=== PATIENT | male | born 1950 | race Caucasian/White ===

== ENCOUNTER 2017-03-03 09:19 | Day surgery (SDC) | payer OTHER, MEDICARE ==
[2017-03-02 14:27] VITALS: BMI 30.2
[2017-03-03] MEDS ORDERED: PROPOFOL 20 ML ONE ×2 (09:37→10:18)
[2017-03-03 11:19] VITALS: TEMP 98.4
[2017-03-03 13:18] VITALS: BP 104/62; PULSE 71
--- NOTE | 2017-03-04 12:18 | PATH ---
Surgical Pathology Report Patient Name: OZZY BENJAMIN [facility]. Rec. #: [id number] /Age/Gender: 1950 (Age: 66) / M Account: [id number] Location: U-ENDOSCOPY Taken: 03/03/2017 Received: 03/03/2017 Reported: 03/04/2017 Physicians: Toby Santana D.O. Specimen(s) Received A: BX TRANSVERSE COLON POLYP B: BX DESCENDING COLON POLYP C: BX RECTAL POLYP X2 Clinical History Screening Colon polyps, diverticulosis, hemorrhoids Final Diagnosis A. COLON, TRANSVERSE, BIOPSY: TUBULAR ADENOMA. B. COLON, DESCENDING, BIOPSY: TUBULAR ADENOMA. C. COLON, RECTUM, BIOPSY: HYPERPLASTIC POLYPS (2). Electronically Signed Mj Hoffmann M.D. Gross Description A. Received in formalin, labeled "biopsy transverse colon polyps" is a karimi, irregular portion of soft tissue measuring 0.4 cm. in greatest dimension. The specimen is submitted in toto in one cassette. B. Received in formalin, labeled "biopsy descending colon polyps" are 2 karimi, irregular portions of soft tissue measuring 0.2 and 0.3 cm. in greatest dimension. The specimens are submitted in toto in one cassette. C. Received in formalin, labeled "biopsy rectal polyps" are 4 karimi, irregular portions of soft tissue ranging from 0.2-0.5 cm. in greatest dimension. The specimens are submitted in toto in one cassette. 03/03/2017 saudi03/03/2017
== END 2017-03-03 11:11 | disposition home or self-care (01) ==
LOC: JASU-ENDO 09:19
PROVIDERS: ATTEND Internal Medicine Gastroenterology
PROC: 0DBM8ZX Excision of Descending Colon, Via Natural or Artificial Opening Endoscopic, Diagnostic (ICD-10-PCS; 2017-03-03)
PROC: 0DBP8ZX Excision of Rectum, Via Natural or Artificial Opening Endoscopic, Diagnostic (ICD-10-PCS; 2017-03-03)
PROC: 0DBL8ZX Excision of Transverse Colon, Via Natural or Artificial Opening Endoscopic, Diagnostic (ICD-10-PCS; principal; 2017-03-03 10:00)
DX: Z12.11 Encounter for screening for malignant neoplasm of colon (principal); K62.1 Rectal polyp; D12.4 Benign neoplasm of descending colon; D12.3 Benign neoplasm of transverse colon; K57.30 Diverticulosis of large intestine without perforation or abscess without bleeding; K64.8 Other hemorrhoids
CPT/HCPCS: 88305-TC